=== PATIENT | female | born 1935 | race Caucasian/White ===

== ENCOUNTER 2020-06-17 11:19 | Emergency (ER) | payer MEDICARE ==
[~2020-06-17] VITALS: Ht 167.6 cm; Wt 92.7 kg
[~2020-06-17 11:19] MED LIST: ASPI-611 PO; AZAT50TA35 PO; CLON-527 PO; DICY10CA88 PO; FLUO-1 PO; FURO-61 PO; LOPE-144 PO; METO50TA16 PF; OLAN2.5T3 PO; ONDA8TAB9 PO; PHEN-716 PO; POTA8CAP PO
[2020-06-17] MEDS ORDERED: normal saline 1000ML IV soln IVB ONE (11:55)
[2020-06-17 12:31] LABS: BASOPHILS # (AUTO) 0.1 X10'3 (0-0.2); BASOPHILS % (AUTO) 0.6 % (0-1); EOSINOPHILS % (AUTO) 0.4 % (0-6); LYMPHOCYTES % (AUTO) 11.6 % (21-51); MEAN CORPUSCULAR HEMOGLOBIN 28.1 PG (27.0-31.0); MEAN CORPUSCULAR HGB CONC 32.6 g/dL (33.0-36.5); MEAN PLATELET VOLUME 8.2 FL (7.4-10.4); MONOCYTES # (AUTO) 0.6 X10'3 (0-0.9); NEUTROPHILS # (AUTO) 7.3 X10'3 (1.8-7.7); NEUTROPHILS % (AUTO) 80.4 % (42-75); PLATELET COUNT 341 X10'3 (140-440); RED BLOOD COUNT 4.65 X10'6 (4.20-5.60); RED CELL DISTRIBUTION WIDTH 13.1 % (11.5-14.5)
[2020-06-17] MEDS ORDERED: METF500T PO (12:40)
[2020-06-17 12:44] LABS: HEMOGLOBIN A1C 6.9 % (4.5-6.2)
[2020-06-17 12:49] LABS: ALANINE AMINOTRANSFERASE 21 U/L (12-78); ALBUMIN 3.2 G/DL (3.4-5.0); ALBUMIN/GLOBULIN RATIO 0.7 (1.1-1.5); ALKALINE PHOSPHATASE 83 IU/L (46-116); ANION GAP 6 (8-16); ASPARTATE AMINO TRANSFERASE 16 U/L (10-37); BILIRUBIN,TOTAL 0.2 MG/DL (0.1-1.0); BLOOD UREA NITROGEN 9 MG/DL (7-18); BUN/CREATININE RATIO 9.4 (6.6-38.0); CHLORIDE 102 MMOL/L (99-107); CREATININE 0.96 MG/DL (0.40-0.90); GLUCOSE 252 MG/DL (70-104); MAGNESIUM 1.9 MG/DL (1.5-2.4); POTASSIUM 3.6 MMOL/L (3.5-5.1); SODIUM 137 MMOL/L (135-145); TOTAL CARBON DIOXIDE 29.4 MMOL/L (24-32); TOTAL PROTEIN 7.5 G/DL (6.4-8.2); eGFR 55 ML/MIN
[2020-06-17 13:40] VITALS: BP 168/77
== END 2020-06-17 13:42 | disposition home or self-care (01) ==
LOC: ER 11:20
DX: E11.65 Type 2 diabetes mellitus with hyperglycemia (principal); I50.9 Heart failure, unspecified; I11.0 Hypertensive heart disease with heart failure; F32.9 Major depressive disorder, single episode, unspecified; Z90.49 Acquired absence of other specified parts of digestive tract; Z98.890 Other specified postprocedural states; Z88.0 Allergy status to penicillin; Z88.8 Allergy status to other drugs, medicaments and biological substances; Z79.82 Long term (current) use of aspirin; Z79.899 Other long term (current) drug therapy
CPT/HCPCS: 36415; 71045; 80053; 82948; 83036; 83735; 84484; 85025; 93005; 96360; 99285; J7030

== ENCOUNTER 2022-10-23 11:11 | Day surgery (SDC) | payer MEDICARE ==
[2022-10-17 10:10] LABS: BASOPHILS % (AUTO) 0.2 % (0-1); EOSINOPHILS % (AUTO) 0.4 % (0-6); HEMATOCRIT 36.6 % (35.0-45.0); HEMOGLOBIN 11.5 g/dl (12.0-16.0); LYMPHOCYTES # (AUTO) 1.7 X10'3 (1.1-4.8); LYMPHOCYTES % (AUTO) 15.1 % (21-51); MEAN CORPUSCULAR HEMOGLOBIN 27.6 PG (27.0-31.0); MEAN CORPUSCULAR HGB CONC 31.5 g/dL (33.0-36.5); MEAN CORPUSCULAR VOLUME 87.8 FL (78-98); MEAN PLATELET VOLUME 8.4 FL (7.4-10.4); MONOCYTES # (AUTO) 0.6 X10'3 (0-0.9); MONOCYTES % (AUTO) 5.7 % (2-12); NEUTROPHILS % (AUTO) 78.6 % (42-75); PLATELET COUNT 362 X10'3 (140-440); RED BLOOD COUNT 4.17 X10'6 (4.20-5.60); RED CELL DISTRIBUTION WIDTH 14.7 % (11.5-14.5); WHITE BLOOD COUNT 11.4 X10'3 (4.5-11.0)
[2022-10-17 10:22] LABS: APTT 27 SECONDS (22-32)
[2022-10-17 10:25] LABS: ANION GAP 10 (8-16); BLOOD UREA NITROGEN 26 MG/DL (7-18); BUN/CREATININE RATIO 20.5 (6.6-38.0); CALCIUM 9.1 MG/DL (8.5-10.1); CHLORIDE 107 MMOL/L (99-107); CREATININE 1.27 MG/DL (0.40-0.90); GLUCOSE 80 MG/DL (70-104); POTASSIUM 3.4 MMOL/L (3.5-5.1); SODIUM 143 MMOL/L (135-145); TOTAL CARBON DIOXIDE 25.7 MMOL/L (24-32); eGFR 40 ML/MIN
[~2022-10-23] VITALS: Ht 167.6 cm; Wt 79.0 kg
[2022-10-23] VITALS (14 sets, daily range): BP systolic 109–135; BP diastolic 52–77
[2022-10-23] MEDS ORDERED: ERGO500093 PO (11:40)
[2022-10-23] MEDS ORDERED: CHOL1LIQ PO (11:40)
[2022-10-23] MEDS ORDERED: METF-1203 PO (11:40)
[2022-10-23] MEDS ORDERED: INSU100I29 SQ (11:40)
[2022-10-23] MEDS ORDERED: TRAZ150T78 PO (11:40)
[2022-10-23] MEDS ORDERED: AMIO200T61 PO (11:40)
[2022-10-23] MEDS ORDERED: POTA8TAB69 PO (11:40)
[2022-10-23] MEDS ORDERED: ESCI20TA39 PO (11:40)
[2022-10-23] MEDS ORDERED: POTA-82 PO (11:40)
[2022-10-23] MEDS ORDERED: MULT-227 PO (11:40)
[2022-10-23] MEDS ORDERED: AMLO2.5T5 PO (11:40)
[2022-10-23] MEDS ORDERED: APIX5TAB3 PO (11:40)
[2022-10-23] MEDS ORDERED: ALEN70TA80 PO (11:40)
[2022-10-23] MEDS ORDERED: ATOR10TA70 PO (11:40)
[2022-10-23] MEDS ORDERED: PRED10TA PO (11:40)
[2022-10-23] MEDS ORDERED: PIOG30TA71 PO (11:40)
[2022-10-23] MEDS ORDERED: fentaNYL/PF 50MCG/1 ML 2ML syringe IV ONE (11:45)
[2022-10-23] MEDS ORDERED: MIDAZolam 1mg/ml 10ml vial IV ONE (11:45)
[2022-10-23] MEDS ORDERED: normal saline 1000ml 1,000 ML IV SCH (11:45)
== END 2022-10-23 14:20 | disposition home or self-care (01) ==
LOC: SSTAY O 11:11
PROVIDERS: ATTEND Internal Medicine Interventional Cardiology
DX: I48.91 Unspecified atrial fibrillation (principal); I11.0 Hypertensive heart disease with heart failure; I50.9 Heart failure, unspecified; E11.9 Type 2 diabetes mellitus without complications; I35.0 Nonrheumatic aortic (valve) stenosis; Z79.01 Long term (current) use of anticoagulants; Z79.4 Long term (current) use of insulin; Z79.899 Other long term (current) drug therapy; Z88.8 Allergy status to other drugs, medicaments and biological substances; Z88.0 Allergy status to penicillin
CPT/HCPCS: 36415; 80048; 82948; 85025; 85610; 85730; 92960; 93005; J2250; J3010; J7030; A4620

== ENCOUNTER 2023-01-25 09:18 | Emergency (ER) | payer MEDICARE ==
[~2023-01-25] VITALS: Ht 165.1 cm; Wt 71.8 kg
[~2023-01-25 09:18] MED LIST changes: +ALEN70TA80 PO; +AMIO200T61 PO; +AMLO2.5T5 PO; +APIX5TAB3 PO; -ASPI-611 PO; +ATOR10TA70 PO; -AZAT50TA35 PO; +CHOL1LIQ PO; -CLON-527 PO; -DICY10CA88 PO; +ERGO500093 PO; +ESCI20TA39 PO; -FLUO-1 PO; +INSU100I29 SQ; -LOPE-144 PO; +METF-1203 PO; -METO50TA16 PF; +MULT-227 PO; -OLAN2.5T3 PO; -ONDA8TAB9 PO; -PHEN-716 PO; +PIOG30TA71 PO; +POTA-82 PO; -POTA8CAP PO; +POTA8TAB69 PO; +PRED10TA PO; +TRAZ150T78 PO
--- NOTE | 2023-01-25 09:37 | NUR ---
Pt in [facility], C/o BLE weeping x2 days. Pt educated to POC. Pt in agreement. Pending providers eval and treatment.
[2023-01-25] MEDS ORDERED: furosemide 40mg/4ml inj IV ONE (09:40)
[2023-01-25] MEDS ORDERED: TETanus/Pertussis (Acell)/Diphther VAC/PF (Tdap-Adult) 0.5ml syringe IMVAC ONE (09:50)
[2023-01-25 09:57] LABS: BASOPHILS % (AUTO) 0.3 % (0-1); EOSINOPHILS # (AUTO) 0.1 X10'3 (0-0.9); EOSINOPHILS % (AUTO) 0.8 % (0-6); HEMOGLOBIN 12.6 g/dl (12.0-16.0); LYMPHOCYTES # (AUTO) 2.4 X10'3 (1.1-4.8); LYMPHOCYTES % (AUTO) 29.7 % (21-51); MEAN CORPUSCULAR HEMOGLOBIN 28.4 PG (27.0-31.0); MEAN CORPUSCULAR HGB CONC 32.4 g/dL (33.0-36.5); MEAN CORPUSCULAR VOLUME 87.5 FL (78-98); MONOCYTES # (AUTO) 0.6 X10'3 (0-0.9); NEUTROPHILS % (AUTO) 62.2 % (42-75); PLATELET COUNT 237 X10'3 (140-440); RED BLOOD COUNT 4.45 X10'6 (4.20-5.60); RED CELL DISTRIBUTION WIDTH 17.7 % (11.5-14.5)
[2023-01-25 10:07] LABS: ALANINE AMINOTRANSFERASE 42 U/L (12-78); ALBUMIN 3.1 G/DL (3.4-5.0); ALBUMIN/GLOBULIN RATIO 0.9 (1.1-1.5); ALKALINE PHOSPHATASE 55 IU/L (46-116); ANION GAP 10 (8-16); ASPARTATE AMINO TRANSFERASE 51 U/L (10-37); BILIRUBIN,TOTAL 0.3 MG/DL (0.1-1.0); BLOOD UREA NITROGEN 18 MG/DL (7-18); BUN/CREATININE RATIO 14.2 (10.0-20.0); CALCIUM 8.8 MG/DL (8.5-10.1); CHLORIDE 107 MMOL/L (99-107); CREATININE 1.27 MG/DL (0.40-0.90); GLUCOSE 83 MG/DL (70-104); POTASSIUM 3.4 MMOL/L (3.5-5.1); SODIUM 144 MMOL/L (135-145); TOTAL CARBON DIOXIDE 27.4 MMOL/L (24-32); TOTAL PROTEIN 6.7 G/DL (6.4-8.2); eGFR 40 ML/MIN
--- NOTE | 2023-01-25 14:53 | NUR ---
Pt hypoglycemic. BS 44. Pt drinking apple juice and eating crackers now. RN notified PA. Per BONI BRAN to order diet order. RN ordered diet via [facility]. Addendum: 01/25/23 at 1618 by JOANNE RN rechecked BS: result was 72.
[2023-01-25 15:35] LABS: D-DIMER 0.21 MG/L FEU (0-0.50)
[2023-01-25 16:58] VITALS: BP 123/61
== END 2023-01-25 17:06 | disposition home or self-care (01) ==
LOC: ER 09:18
DX: I11.0 Hypertensive heart disease with heart failure (principal); I50.9 Heart failure, unspecified; S81.812A Laceration without foreign body, left lower leg, initial encounter; I48.91 Unspecified atrial fibrillation; R60.9 Edema, unspecified; E11.9 Type 2 diabetes mellitus without complications; Z88.0 Allergy status to penicillin; Z88.8 Allergy status to other drugs, medicaments and biological substances; X58.XXXA Exposure to other specified factors, initial encounter; Y93.89 Activity, other specified; Y92.89 Other specified places as the place of occurrence of the external cause; Y99.8 Other external cause status
CPT/HCPCS: 36415; 71045; 71250; 80053; 82948; 83880; 84484; 85025; 85379; 90471; 90715; 93005; 96374; 99285; J1940; A6258

== ENCOUNTER 2023-11-14 04:02 | Emergency (ER) | payer MEDICARE ==
[~2023-11-14] VITALS: Ht 167.6 cm; Wt 75.0 kg
[~2023-11-14 04:02] MED LIST changes: +AMI200T PO; -AMIO200T61 PO; +POTA-366 PO; -POTA-82 PO
[2023-11-14 05:15] VITALS: BP 184/82; PULSE 97; RESP 16; TEMP 99.2; O2SAT 97
== END 2023-11-14 12:02 | disposition left against medical advice (07) ==
LOC: ER 04:03
DX: J11.1 Influenza due to unidentified influenza virus with other respiratory manifestations (principal); R53.1 Weakness; Z53.21 Procedure and treatment not carried out due to patient leaving prior to being seen by health care provider
CPT/HCPCS: 93005; 99281

== ENCOUNTER 2024-06-12 10:08 | Inpatient (IN) | payer MEDICARE, MEDICAID ==
[~2024-06-12] VITALS: Ht 167.6 cm; Wt 68.2 kg
[2024-06-12 11:03] LABS: BASOPHILS % (AUTO) 0.5 % (0-1); EOSINOPHILS % (AUTO) 0.4 % (0-6); HEMATOCRIT 38.4 % (35.0-45.0); HEMOGLOBIN 12.1 g/dl (12.0-16.0); LYMPHOCYTES % (AUTO) 10.7 % (21-51); MEAN CORPUSCULAR HEMOGLOBIN 27.4 PG (27.0-31.0); MEAN CORPUSCULAR HGB CONC 31.6 g/dL (33.0-36.5); MEAN CORPUSCULAR VOLUME 86.7 FL (78-98); MEAN PLATELET VOLUME 8.2 FL (7.4-10.4); MONOCYTES # (AUTO) 0.5 X10'3 (0-0.9); MONOCYTES % (AUTO) 5.2 % (2-12); NEUTROPHILS % (AUTO) 83.2 % (42-75); PLATELET COUNT 244 X10'3 (140-440); RED BLOOD COUNT 4.43 X10'6 (4.20-5.60); RED CELL DISTRIBUTION WIDTH 16.7 % (11.5-14.5); WHITE BLOOD COUNT 9.6 X10'3 (4.5-11.0)
[2024-06-12 11:19] LABS: ANISOCYTOSIS 1+; PLATELET ESTIMATE NORMAL; ROULEAUX 1+; TOTAL CELLS COUNTED 100
[2024-06-12 11:20] LABS: POLYCHROMASIA FEW
[2024-06-12 11:24] LABS: BILIRUBIN,URINE NEGATIVE (Neg); CLARITY,URINE SLIGHTLY CLOUDY (Clear); COLOR,URINE STRAW (Yellow); GLUCOSE, URINE 500 mg/dl (Neg); KETONES,URINE NEGATIVE (Neg); LEUKOCYTE ESTERASE ,URINE NEGATIVE (Neg); NITRITES, URINE NEGATIVE (Neg); OCCULT BLOOD,URINE NEGATIVE (Neg); PROTEIN,URINE NEGATIVE (Neg); UROBILINOGEN,URINE 0.2 E.U/dL (0.2-1.0)
[2024-06-12 11:25] LABS: ALANINE AMINOTRANSFERASE 13 U/L (12-78); ALBUMIN 2.3 G/DL (3.4-5.0); ALBUMIN/GLOBULIN RATIO 0.5 (1.1-1.5); ALKALINE PHOSPHATASE 60 IU/L (46-116); ANION GAP 6 (8-16); ASPARTATE AMINO TRANSFERASE 14 U/L (10-37); BILIRUBIN,DIRECT 0.2 MG/DL (0-0.3); BILIRUBIN,TOTAL 0.3 MG/DL (0.1-1.0); BLOOD UREA NITROGEN 34 MG/DL (7-18); BUN/CREATININE RATIO 20.9 (10.0-20.0); C-REACTIVE PROTEIN 18.92 MG/DL (0.0-0.5); CALCIUM 8.9 MG/DL (8.5-10.1); CHLORIDE 96 MMOL/L (99-107); CREATININE 1.63 MG/DL (0.40-0.90); GLUCOSE 184 MG/DL (70-104); POTASSIUM 3.5 MMOL/L (3.5-5.1); PRO BRAIN NATRIURETIC PEPTIDE 3192 PG/ML (0-450); SODIUM 138 MMOL/L (135-145); TOTAL CARBON DIOXIDE 35.8 MMOL/L (24-32); TOTAL PROTEIN 7.2 G/DL (6.4-8.2); eCRCL 22 ML/MIN; eGFR 30 ML/MIN
[2024-06-12 11:27] LABS: UA COLLECTION TYPE STRAIGHT CATH
[2024-06-12 11:31] LABS: BACTERIA,URINE 3+ /HPF (Neg); HYALINE CASTS 0-3 /LPF (NEGATIVE); MUCUS STRANDS NONE SEEN /LPF (Neg); RBC,URINE NONE SEEN /HPF (0-2); SQUAMOUS EPITHELIAL CELL,UR MANY /LPF (FEW); WBC CLUMPS,URINE FEW /HPF (NEGATIVE)
[2024-06-12 11:32] LABS: FINE GRANULAR CAST 0-3 /LPF (NEGATIVE)
[2024-06-12] MEDS: CefTRIAXone/D5W-Rocephin 1gm 50 ML IV ONE (11:55)
[2024-06-12] MEDS: normal saline 1000ml 1,000 ML IV ONE (11:55)
[2024-06-12] MEDS: azithromycin/NS 500mg/250ml 250 ML IV ONE (12:39)
[2024-06-12] MEDS ORDERED: ondansetron/PF 4mg/2ml inj IV PRN (12:45)
[2024-06-12] MEDS ORDERED: mag hydrox/Alum hydrox/simeth 30ml oral suspension PO PRN (12:45)
[2024-06-12] MEDS ORDERED: magnesium sulf-water 2g/50mL 50 ML IV PRN (12:45)
[2024-06-12] MEDS ORDERED: magnesium hydroxide 30ml (MOM) UD suspension PO PRN (12:45)
[2024-06-12] MEDS ORDERED: morphine 2 MG/ML inj. syringe IV PRN ×2 (12:45)
[2024-06-12] MEDS ORDERED: potassium Cl 20 mEq SR tablet PO PRN (12:45)
[2024-06-12] MEDS ORDERED: magnesium Cl slow-release 64mg tablet PO PRN (12:45)
[2024-06-12] MEDS ORDERED: magnesium sulf-water 4G/100mL 100 ML IV PRN (12:45)
[2024-06-12] MEDS: PERFLUTREN PROTEIN-A MICROSPHR (Optison) 0.22 MG/ML 3ML VIAL IV ONE (12:58)
[2024-06-12] MEDS: normal saline 500ml IV soln 500 ML IV ONE (13:45)
[2024-06-12] MEDS: amiodarone/D5 360MG/200ML BAG 200 ML IV SCH (13:50)
[2024-06-12] MEDS: amiodarone 150mg/dext, iso-os 100 ML IV ONE (14:41)
[2024-06-12 15:00] VITALS: BP 147/42; PULSE 83; RESP 20; TEMP 97.5; O2SAT 97
[2024-06-12] MEDS ORDERED: ergocalciferol (vit D2) capsule 50,000 UNITS (1,250mcg) CAPSULE PO SCH (15:15)
[2024-06-12] MEDS ORDERED: non-formulary drug (Alendronate Sodium 1 TAB) PO SCH (15:15)
[2024-06-12] MEDS ORDERED: glucagon, human recombinant 1mg kit SUBCUT PRN (15:20)
[2024-06-12] MEDS ORDERED: dextrose 50%-water 50ml dispensing syringe IV PRN ×2 (15:20)
[2024-06-12] MEDS ORDERED: DEXTROSE 15 GM of carb/4 tabs (each vial/BOTTLE has 4 tablets) PO PRN ×2 (15:20)
[2024-06-12] MEDS ORDERED: piperacillin/tazo 3.375gm/50ml 50 ML IV SCH (16:00)
[2024-06-12 16:06] VITALS: PULSE 84; RESP 24; O2SAT 94
[2024-06-12] MEDS: INSULIN LISPRO 100 UNIT/ML INSULN.PEN MULTI-DOSE SQ SCH (17:00)
[2024-06-12 18:00] VITALS: BP 99/30; PULSE 91; RESP 25; TEMP 98.6; O2SAT 93
[2024-06-12 20:00] VITALS: BP 92/42; PULSE 72; RESP 25; O2SAT 98
[2024-06-12] MEDS: K and/or MAG REPLACEMENT MC SCH (20:00)
[2024-06-12] MEDS ORDERED: heparin, porcine 5000 units/ml vial SQ SCH (20:00)
[2024-06-12] MEDS: apixaban 2.5mg tablet PO SCH (20:40)
[2024-06-12] MEDS: ergocalciferol (vit D2) capsule 50,000 UNITS (1,250mcg) CAPSULE PO SCH (20:40)
[2024-06-12] MEDS: acetaminophen 325mg tablet PO PRN (20:47)
[2024-06-12] MEDS: traZODone 150mg tablet PO SCH (21:36)
[2024-06-12 22:00] VITALS: BP 89/33; PULSE 75; RESP 25; TEMP 97.2; O2SAT 98
[2024-06-12] MEDS: normal saline 1000ml 1,000 ML IV SCH (22:00)
[2024-06-12] MEDS: cefepime 1GM/NS ADD-VANTAGE 100 ML IV SCH (22:16)
[2024-06-12 23:11] VITALS: PULSE 88; RESP 18; O2SAT 95
[2024-06-13] VITALS (11 sets, daily range): BP systolic 96–127; BP diastolic 43–53; PULSE 71–98; RESP 16–31; TEMP 97.5–98.9; O2SAT 90–99
[2024-06-13 06:33] LABS: BASOPHILS % (AUTO) 0.4 % (0-1); EOSINOPHILS # (AUTO) 0.2 X10'3 (0-0.9); EOSINOPHILS % (AUTO) 1.8 % (0-6); HEMATOCRIT 28.8 % (35.0-45.0); HEMOGLOBIN 9.3 g/dl (12.0-16.0); LYMPHOCYTES # (AUTO) 1.6 X10'3 (1.1-4.8); MEAN CORPUSCULAR HEMOGLOBIN 27.9 PG (27.0-31.0); MEAN CORPUSCULAR HGB CONC 32.2 g/dL (33.0-36.5); MEAN CORPUSCULAR VOLUME 86.5 FL (78-98); MEAN PLATELET VOLUME 8.1 FL (7.4-10.4); MONOCYTES # (AUTO) 0.6 X10'3 (0-0.9); NEUTROPHILS # (AUTO) 6.5 X10'3 (1.8-7.7); NEUTROPHILS % (AUTO) 72.8 % (42-75); PLATELET COUNT 191 X10'3 (140-440); RED BLOOD COUNT 3.32 X10'6 (4.20-5.60); RED CELL DISTRIBUTION WIDTH 16.5 % (11.5-14.5); WHITE BLOOD COUNT 8.9 X10'3 (4.5-11.0)
[2024-06-13 07:07] LABS: ALANINE AMINOTRANSFERASE 9 U/L (12-78); ALBUMIN 1.7 G/DL (3.4-5.0); ALBUMIN/GLOBULIN RATIO 0.4 (1.1-1.5); ALKALINE PHOSPHATASE 69 IU/L (46-116); ANION GAP 5 (8-16); ASPARTATE AMINO TRANSFERASE 15 U/L (10-37); BILIRUBIN,TOTAL 0.2 MG/DL (0.1-1.0); BLOOD UREA NITROGEN 29 MG/DL (7-18); BUN/CREATININE RATIO 21.5 (10.0-20.0); CALCIUM 7.6 MG/DL (8.5-10.1); CHLORIDE 102 MMOL/L (99-107); CHOL/HDL RATIO 2.1 (0.00-4.99); CHOLESTEROL 88 MG/DL (0-200); CREATININE 1.35 MG/DL (0.40-0.90); GLUCOSE 86 MG/DL (70-104); HDL CHOLESTEROL 41 MG/DL (35-60); LDL CHOLESTEROL 35 MG/DL (50-100); MAGNESIUM 1.8 MG/DL (1.5-2.4); SODIUM 140 MMOL/L (135-145); THYROID STIMULATING HORMONE 1.67 ulU/ml (0.34-4.50); TOTAL CARBON DIOXIDE 33.4 MMOL/L (24-32); TOTAL PROTEIN 5.6 G/DL (6.4-8.2); TRIGLYCERIDES 54 MG/DL (20-135); eCRCL 26 ML/MIN; eGFR 37 ML/MIN
[2024-06-13 07:11] LABS: POTASSIUM 2.9 MMOL/L (3.5-5.1)
[2024-06-13 08:00] LABS: HEMOGLOBIN A1C 6.1 % (4.5-6.2)
[2024-06-13] MEDS ORDERED: CefTRIAXone/D5W-Rocephin 1gm 50 ML IV SCH (08:00)
[2024-06-13] MEDS: multivitamins, therapeutics tablet PO SCH (08:22)
[2024-06-13] MEDS: prednisone 10mg tablet PO SCH (08:23)
[2024-06-13] MEDS: ESCITALOPRAM 10 mg tablet 10 MG TABLET PO SCH (08:24)
[2024-06-13] MEDS: atorvastatin 10mg tablet PO SCH (08:24)
[2024-06-13] MEDS: amLODIPine 2.5mg tablet PO SCH (08:29)
[2024-06-13] MEDS: insulin glargine (Lantus) pen - multi-dose SQ SCH (08:40)
[2024-06-13] MEDS: azithromycin/NS 500mg/250ml 250 ML IV SCH (08:43)
[2024-06-13] MEDS: amiodarone 200mg tablet PO SCH (12:21)
[2024-06-13] MEDS: LIDOcaine 5% patch TP PRN (12:22)
[2024-06-13] MEDS: potassium Cl 40MEQ/1/2NS 520ml 520 ML IV PRN (12:32)
[2024-06-13] MEDS: ipratropium/albuterol 3ml nebule NEB PRN (21:34)
[2024-06-14] VITALS (8 sets, daily range): BP systolic 100–144; BP diastolic 32–62; PULSE 79–102; RESP 16–23; TEMP 97–98.9; O2SAT 93–100
[2024-06-14] MEDS: OLANZapine 2.5MG tablet PO SCH (20:49)
[2024-06-14 21:07] LABS: BASOPHILS % (AUTO) 0.3 % (0-1); EOSINOPHILS % (AUTO) 0 % (0-6); HEMATOCRIT 28.6 % (35.0-45.0); LYMPHOCYTES # (AUTO) 0.9 X10'3 (1.1-4.8); LYMPHOCYTES % (AUTO) 10.1 % (21-51); MEAN CORPUSCULAR HEMOGLOBIN 26.9 PG (27.0-31.0); MEAN CORPUSCULAR HGB CONC 31.3 g/dL (33.0-36.5); MEAN CORPUSCULAR VOLUME 85.8 FL (78-98); MEAN PLATELET VOLUME 7.8 FL (7.4-10.4); MONOCYTES # (AUTO) 0.4 X10'3 (0-0.9); MONOCYTES % (AUTO) 4.7 % (2-12); NEUTROPHILS # (AUTO) 7.6 X10'3 (1.8-7.7); NEUTROPHILS % (AUTO) 84.9 % (42-75); PLATELET COUNT 245 X10'3 (140-440); RED BLOOD COUNT 3.33 X10'6 (4.20-5.60); RED CELL DISTRIBUTION WIDTH 15.9 % (11.5-14.5)
[2024-06-14 21:17] LABS: ALBUMIN 1.8 G/DL (3.4-5.0); ANION GAP 7 (8-16); BLOOD UREA NITROGEN 19 MG/DL (7-18); BUN/CREATININE RATIO 14.7 (10.0-20.0); CALCIUM 7.9 MG/DL (8.5-10.1); CHLORIDE 103 MMOL/L (99-107); CREATININE 1.29 MG/DL (0.40-0.90); GLUCOSE 206 MG/DL (70-104); SODIUM 138 MMOL/L (135-145); TOTAL CARBON DIOXIDE 28.4 MMOL/L (24-32); eCRCL 28 ML/MIN; eGFR 39 ML/MIN
[2024-06-14 21:55] LABS: TOTAL CELLS COUNTED 100
[2024-06-14 21:56] LABS: PLATELET ESTIMATE NORMAL
[2024-06-14 21:58] LABS: ELLIPTOCYTES FEW; HYPOCHROMASIA 1+
[2024-06-15 02:00] VITALS: BP 117/64; PULSE 100; RESP 20; TEMP 97.8; O2SAT 99
[2024-06-15 06:16] LABS: BASOPHILS % (AUTO) 0.4 % (0-1); EOSINOPHILS # (AUTO) 0.1 X10'3 (0-0.9); HEMOGLOBIN 9.4 g/dl (12.0-16.0); LYMPHOCYTES # (AUTO) 1.6 X10'3 (1.1-4.8); LYMPHOCYTES % (AUTO) 18.1 % (21-51); MEAN CORPUSCULAR HGB CONC 32.5 g/dL (33.0-36.5); MEAN CORPUSCULAR VOLUME 86.1 FL (78-98); MEAN PLATELET VOLUME 7.9 FL (7.4-10.4); MONOCYTES # (AUTO) 0.6 X10'3 (0-0.9); MONOCYTES % (AUTO) 6.3 % (2-12); NEUTROPHILS # (AUTO) 6.5 X10'3 (1.8-7.7); NEUTROPHILS % (AUTO) 74.2 % (42-75); PLATELET COUNT 243 X10'3 (140-440); RED BLOOD COUNT 3.37 X10'6 (4.20-5.60); RED CELL DISTRIBUTION WIDTH 16.5 % (11.5-14.5); WHITE BLOOD COUNT 8.8 X10'3 (4.5-11.0)
[2024-06-15 06:38] LABS: ALANINE AMINOTRANSFERASE 21 U/L (12-78); ALBUMIN 1.8 G/DL (3.4-5.0); ALBUMIN/GLOBULIN RATIO 0.5 (1.1-1.5); ALKALINE PHOSPHATASE 49 IU/L (46-116); ANION GAP 7 (8-16); ASPARTATE AMINO TRANSFERASE 25 U/L (10-37); BILIRUBIN,TOTAL 0.2 MG/DL (0.1-1.0); BLOOD UREA NITROGEN 16 MG/DL (7-18); CALCIUM 8.3 MG/DL (8.5-10.1); CHLORIDE 107 MMOL/L (99-107); CREATININE 1.07 MG/DL (0.40-0.90); GLUCOSE 101 MG/DL (70-104); MAGNESIUM 1.9 MG/DL (1.5-2.4); POTASSIUM 3.4 MMOL/L (3.5-5.1); SODIUM 143 MMOL/L (135-145); TOTAL CARBON DIOXIDE 28.7 MMOL/L (24-32); TOTAL PROTEIN 5.8 G/DL (6.4-8.2); eCRCL 33 ML/MIN; eGFR 48 ML/MIN
[2024-06-15 07:27] LABS: ANISOCYTOSIS 1+; ELLIPTOCYTES FEW; PLATELET ESTIMATE NORMAL; TOTAL CELLS COUNTED 100
[2024-06-15 08:00] VITALS: RESP 21; O2SAT 97
[2024-06-15] MEDS: potassium Cl 20 mEq SR tablet PO PRN (09:13)
[2024-06-15] MEDS: azithromycin 250mg tablet PO SCH (09:13)
[2024-06-15 09:14] VITALS: BP_SYST 134
[2024-06-15] MEDS ORDERED: ondansetron 4mg rapidly disintigrating tab PO PRN (12:10)
[2024-06-15 15:29] VITALS: PULSE 76; RESP 16; O2SAT 92
== END 2024-06-15 16:47 | DRG 871 ==
LOC: ER 10:08 → ED HOLD 12:50 → PCU 3S 15:21
PROVIDERS: ADMIT Family Medicine; ATTEND Family Medicine
DX: A41.9 Sepsis, unspecified organism (principal); J18.9 Pneumonia, unspecified organism; J96.01 Acute respiratory failure with hypoxia; I13.0 Hypertensive heart and chronic kidney disease with heart failure and stage 1 through stage 4 chronic kidney disease, or unspecified chronic kidney disease; N17.9 Acute kidney failure, unspecified; J44.1 Chronic obstructive pulmonary disease with (acute) exacerbation; E11.22 Type 2 diabetes mellitus with diabetic chronic kidney disease; N18.30 Chronic kidney disease, stage 3 unspecified; Z20.822 Contact with and (suspected) exposure to COVID-19; I25.10 Atherosclerotic heart disease of native coronary artery without angina pectoris; E87.6 Hypokalemia; I50.9 Heart failure, unspecified; J44.9 Chronic obstructive pulmonary disease, unspecified; F32.A Depression, unspecified; I48.91 Unspecified atrial fibrillation; Z88.0 Allergy status to penicillin; Z88.8 Allergy status to other drugs, medicaments and biological substances; Z90.49 Acquired absence of other specified parts of digestive tract; Y95 Nosocomial condition
CPT/HCPCS: 36415; 71045; 71250; 80048; 80053; 80061; 80076; 81001; 82948; 83036; 83605; 83735; 83880; 84145; 84443; 84484; 85007; 85025; 86140; 87040; 87077; 87081; 87088; 87186; 87811; 93005; 93306; 94640; 94760; 96365; 96367; 97110; 97161; 97530; 99285; A6212; A6258; A6449; C1758; G0378; J0282; J0456; J0692; J0696; J1815; J3480; J7030; J7512